=== PATIENT | female | born 1980 | race Caucasian/White ===

== ENCOUNTER → 2020-03-17 | Day surgery (SDC) | payer OTHER ==
[~2020-03-17] MED LIST: ACETAMINOPHEN500 M1 PO; COLACE100 MG PO; ESTRACE42.5 GM VG; FLORAJEN3 CAPS460 MG PO; IBUPROFEN800 MG PO; IMITREX100 MG PO; MIRALAX17 GM PO; OXY-IR 5MG5 MG PO; TOPROL XL 25MG25 MG PO; WELLBUTRIN XL300 MG PO; ZESTRIL2.5 MG PO
[2020-03-17 07:02] LABS: HCG (URINE) SCREEN NEGATIVE (NEGATIVE)
[2020-03-17 08:22] LABS: BUN/CREAT RATIO (CALC) 13.4 RATIO; CREATININE 0.67 mg/dL (0.51-0.95); POTASSIUM 3.8 mmol/L (3.5-5.1)
== END | disposition home or self-care (01) ==
LOC: FAS 06:32
PROVIDERS: Anesthesiology; Student in an Organized Health Care Education/Training Program
DX: K64.2 Third degree hemorrhoids (principal); N95.2 Postmenopausal atrophic vaginitis; N94.10 Unspecified dyspareunia; G43.909 Migraine, unspecified, not intractable, without status migrainosus; I42.9 Cardiomyopathy, unspecified; Z88.1 Allergy status to other antibiotic agents; Z91.040 Latex allergy status; Z98.51 Tubal ligation status; Z98.890 Other specified postprocedural states; Z87.891 Personal history of nicotine dependence; Z86.16 Personal history of COVID-19; Z80.0 Family history of malignant neoplasm of digestive organs
CPT/HCPCS: 36415; 80048; 84703; 93005; J2250; J2704; J3010; J7120